=== PATIENT | female | born 1965 | race Caucasian/White ===

== ENCOUNTER → 2016-07-17 | Outpatient (CLI) | payer BC ==
[~2016-07-17] MED LIST: DLCSR120 PO; EZET10TA63 PO; GLC500 PO; INSDGI SC; INSUINJ14 SC; LISI-729 PO; SIMV20TA2 PO; SNG10 PO
[2016-07-17 14:22] LABS: ESTIMATED AVERAGE GLUCOSE 157 mg/dl; HA1C FLAG Normal (Normal)
== END | disposition home or self-care (01) ==
LOC: C.LABPVFM 07:31
PROVIDERS: ATTEND Nurse Practitioner Adult Health
DX: E11.9 Type 2 diabetes mellitus without complications (principal)

== ENCOUNTER → 2016-10-31 | Outpatient (CLI) | payer BC ==
[2016-10-31 13:18] LABS: ALT/SGPT 23 U/L (12-78); BLOOD UREA NITROGEN 17 mg/dl (7-18); BUN/CREATININE RATIO 23.8 (10-20); CALCIUM 9.3 mg/dl (8.5-10.1); CARBON DIOXIDE 25 mmol/L (21-32); CHLORIDE 107 mmol/L (98-107); CHOLESTEROL 136 mg/dl (0-200); CREATININE 0.71 mg/dl (0.60-1.20); GLUCOSE 104 mg/dl (70-99); POTASSIUM 4.1 mmol/L (3.5-5.1); SODIUM 140 mmol/L (136-145); TRIGLYCERIDES 166 mg/dl (0-150); VERY LOW DENSITY LIPOPROT CALC 33 mg/dl
[2016-10-31 13:29] LABS: ALB/GLOB RATIO 0.9 (0.9-2); ALKALINE PHOSPHATASE 84 U/L (45-117); AST/SGOT 17 U/L (15-37); CHOLESTEROL/HDL RATIO 3.2; HDL CHOLESTEROL 43 mg/dl; LDL CHOLESTEROL CALCULATED 60 mg/dl
[2016-10-31 13:31] LABS: RATIO 6.7 mcg/mg (0-30.0)
[2016-10-31 13:56] LABS: ESTIMATED AVERAGE GLUCOSE 160 mg/dl; HA1C FLAG Normal (Normal)
== END | disposition home or self-care (01) ==
LOC: C.LABPVFM 07:44
PROVIDERS: ATTEND Family Medicine
DX: E11.9 Type 2 diabetes mellitus without complications (principal); E78.00 Pure hypercholesterolemia, unspecified; I10 Essential (primary) hypertension

== ENCOUNTER → 2016-12-19 | Outpatient (CLI) | payer BC ==
[2016-12-19 12:45] LABS: CREATININE 0.69 mg/dl (0.60-1.20)
== END | disposition home or self-care (01) ==
LOC: C.LABPVFM 07:41
PROVIDERS: ATTEND Nurse Practitioner Adult Health
DX: E11.9 Type 2 diabetes mellitus without complications (principal); E78.00 Pure hypercholesterolemia, unspecified; R94.6 Abnormal results of thyroid function studies; I10 Essential (primary) hypertension

== ENCOUNTER → 2017-06-13 | Outpatient (CLI) | payer OTHER ==
[2017-06-13 13:14] LABS: HEMOGLOBIN A1C 7.4 % (4.5-5.6)
[2017-06-13 13:27] LABS: BLOOD UREA NITROGEN 13 mg/dl (7-18); CALCIUM 9.9 mg/dl (8.5-10.1); CARBON DIOXIDE 28 mmol/L (21-32); CREATININE 0.73 mg/dl (0.60-1.20); GLUCOSE 104 mg/dl (70-99); POTASSIUM 4.1 mmol/L (3.5-5.1); SODIUM 140 mmol/L (136-145)
== END | disposition home or self-care (01) ==
LOC: C.LABPVFM 07:50
PROVIDERS: ATTEND Nurse Practitioner Adult Health
DX: H69.80 Other specified disorders of Eustachian tube, unspecified ear (principal); I10 Essential (primary) hypertension; E11.9 Type 2 diabetes mellitus without complications

== ENCOUNTER 2024-04-09 10:58 | Inpatient (IN) ==
[2024-04-09 11:48] LABS: Appearance Urine Clear (Clear); Bacteria Urine Automated None Seen (None Seen); Bilirubin Urine Negative (Negative); Blood Urine 1+ (Negative); Color Urine Yellow; Epithelial Cell Urine Auto 0-2 /hpf (0-2); Glucose Urine UA Negative (Negative); Hyaline Casts Urine Present /lpf (None Presnt); Ketones Urine Trace (Negative); Leukocyte Esterase Urine 1+ (Negative); Nitrite Urine Negative (Negative); Protein Urine 2+ (Negative); RBC Urine Automated 0-2 /hpf (0-2); Specific Gravity Urine 1.011 (1.000-1.030); Urobilinogen Urine Negative (Negative)
[2024-04-09 12:02] LABS: Basophils # (auto) 0.09 K/uL (0.00-0.20); Basophils % (auto) 0.8 %; Eosinophils # (auto) 0.21 K/uL (0.00-0.50); Eosinophils % (auto) 1.9 %; Hematocrit (blood only) 30.5 % (37.0-47.0); Hemoglobin 9.9 g/dl (12.0-16.0); Immature Granulocytes # (auto) 0.04 K/uL (0.01-0.20); Immature Granulocytes % (auto) 0.4 %; Lymphocytes # (auto) 1.61 K/uL (1.20-3.40); Lymphocytes % (auto) 14.8 %; Mean Corpuscular Hemoglobin 28.6 pg (25.0-34.0); Mean Corpuscular Hgb Conc 32.5 g/dL (32.0-36.0); Mean Corpuscular Volume 88.2 fL (80.0-100.0); Mean Platelet Volume 11.8 fL (9.4-12.4); Monocytes # (auto) 0.79 K/uL (0.11-0.59); Monocytes % (auto) 7.2 %; Neutrophils # (auto) 8.17 K/uL (1.40-6.50); Neutrophils % (auto) 74.9 %; Platelet Count 266 K/uL (130-400); RDW Coefficient of Variation 14.6 % (11.5-14.5); RDW Standard Deviation 46.8 fL (36.4-46.3); Red Blood Count 3.46 M/uL (4.20-5.40); White Blood Count 10.91 K/ul (4.8-10.8)
[2024-04-09 12:24] LABS: Albumin Globulin Ratio 1.4 (0.9-2); Albumin Level 4.4 gm/dl (3.4-5.0); BUN Creatinine Ratio 12.8 (10-20); Bilirubin,Total 0.5 mg/dl (0.2-1.0); Calcium 9.4 mg/dl (8.6-10.3); Creatinine Clr Calc Pharmacy 10.2 ml/min; Globulin 3.1 gm/dl (2.5-4.0); Potassium 4.5 mmol/L (3.5-5.1); Total Protein 7.5 gm/dl (6.0-8.3)
[2024-04-09 12:41] LABS: Magnesium 2.1 mg/dl (1.7-2.4)
--- NOTE | 2024-04-09 12:51 | XRay Report ---
XR chest 1V portable CLINICAL HISTORY: illness COMPARISON STUDY: Chest CT April 24, 2008. FINDINGS: Lung volumes are normal. Lungs are clear. There is no pneumothorax or pleural effusion. Mil d cardiomegaly. Mediastinal contours are normal. There is no evidence for pulmonary edema. IMPRESSION: No acute cardiopulmonary findings. Cardiomegaly. ACT 112: Negative or not required by law. Electronically signed by: Raudel Alexandra M.D. 04/09/2024 12:50 PM
--- NOTE | 2024-04-09 13:04 | CT Scan Report ---
CT OF THE ABDOMEN AND PELVIS WITHOUT CONTRAST CLINICAL HISTORY: Acute kidney injury. COMPARISON STUDY: CT of the abdomen and pelvis May 25, 2008. TECHNIQUE: Axial images of the abdomen and pelvis were obtained without IV contrast. Images were revi ewed in the axial, sagittal, and coronal planes. Automated exposure control was utilized for the iván dy. A dose lowering technique was utilized adhering to the principles of ALARA. FINDINGS: Lung bases are unremarkable. No pneumatosis, free air or portal venous gas is present. Ther e are no renal, ureteral or bladder calculi. There is no hydronephrosis. Mild bilateral perinephric i nfiltration is greater on the left. Size of the kidneys is normal. Renal cortical thickness is normal . Fat attenuation 2.4 cm left adrenal nodule represents a myelolipoma. This is benign. Unenhanced yadira ges of the liver, spleen, adrenal glands and pancreas are unremarkable. There is no biliary or pancre atic ductal dilatation. There is no evidence for acute appendicitis. A radiodensity within the append ix is present. There is no lymphadenopathy. There are no fluid collections. IMPRESSION: 1. No urinary calculi or hydronephrosis. 2. Mild bilateral perinephric infiltration, greater than left. This represents a nonspecific finding which could be correlated with urinalysis. 3. No bowel obstruction. No evidence for acute appendicitis. ACT 112: Negative or not required by law. Electronically signed by: Raudel Alexandra M.D. 04/09/2024 1:02 PM
--- NOTE | 2024-04-09 13:33 | History & Physical Report ---
Date of Service April 09, 2024 Assessment & Plan (1) Acute renal failure: Plan: No known history of renal disease, does have a history of hypertension and type II DM no noted extreme hypotension or hypertension recently has had nausea/vomiting ~6 x in 2 weeks; suspected cause at this time is from hypovolemia - Cr 0.77 -> 7.25 -> 6.89 - BUN elevated to 88 indicating pre-renal cause - no electrolyte abnormalities - CXR negative, no signs of pulmonary edema - CT A/P negative for urinary hydro diffuse mild bilateral perinephritic infiltration, right greater than left, nonspecific - UA noninfectious, 2+ protein, trace ketones, 1+ blood, 1+ leukocyte esterase, 11-20 WBC, 6-10 hyaline cast - FENa = 0.8% = prerenal - lactate negative - trend renal function - repeat BMP 1700 - Hold metformin and Olmesartan - Consult nephrology - Recommended to start on sodium bicarb 150 MeQ at 100 ml/hr - ordered complement C3, complement C4, CK, protein electrophoresis, MICHAEL, iron panel, free kappa lambda light chain - repeat UA in AM - promote oral hydration (2) Metabolic acidosis: Plan: Suspect secondary to hypovolemia/vomiting Anion gap 18 VBG confirming metabolic acidosis - 7.34/37/20 lactate negative - expect to improve with treatment above - trend BMP (3) Tachycardia: Plan: likely 2/2 to above along with white coat syndrome and hypovolemia EKG showing NSR, no ischemic changes monitor on tele suspect improved with treatment above (4) Type 2 diabetes mellitus with obesity: Plan: Controlled on glargine 16U QAM, SSI (carb ratio 5 at home), metformin, s emaglutide at home - Most recent A1C 7.2 12/2023 - SSI with target BSG range 110-140mg/dL, CF 15, carb ratio 5 - Glargine insulin reduced to 12 units daily as diet control during hospital stay - hold metformin and semaglutide - T2DM diet - BSG ACHS if eating, q6h if npo - pharmacy glycemic consult given renal failure (5) Hypothyroidism: Plan: recent TSH WNL Continue levothyroxine (6) Hypertension: Plan: history of hypertension with white coat syndrome on diltiazem and and olmesartan continue dilt and hold olmesartan Plan Chronic stable diagnoses: intraductal papilloma left breast, 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 She has no known kidney disease. Presents today after abnormal blood work yesterday showing significantly elevated creatinine. she stated that she has had nausea and vomiting for the past 2 weeks, she will have 1 episode of vomiting and then go 2 to 3 days without. She has vomited approximately 6 times in the past few weeks. She just vomits food she eats, no hematemesis or bile. She thought this was secondary to Ozempic and discontinued it. Her PCP told her to discontinue her metformin yesterday 04/08. She did get her morning dose yesterday. She has chronically followed with her renal function, has always been stable. She stated she has had a decreased p.o. intake for the past few weeks just because of the nausea, sometimes she is dry heaves. She feels thirsty today. She drinks plenty of fluids, feels her yeti 3 times daily, no recent decline. She has had no other medication changes recently. She takes her blood pressure frequently at home, has been stable, no hyper or hypotension; has been trending between 120-130 systolic. She denies any urinary changes, denies decrease in urine output, dysuria, hematuria. Patient denies fever, chills, headache, dizziness, lightheadedness, vision changes, dyspnea, chest pain, abdominal pain, current nausea, edema, numbness, tingling. She does not use nicotine products and occasionally drinks alcohol. She still takes anastrozole for history of breast cancer. No previous VTE. She wishes to be full code at this time. She did not take her home medications this morning. Allergies Allergy/AdvReac Type Severity Reaction Status Date / Time liraglutide [From Victoza] Allergy Severe Tachycardia Verified 04/08/24 12:40 Sulfa (Sulfonamide Allergy Severe Hives Verified 04/08/24 12:40 Antibiotics) meperidine Allergy Mild Nausea Verified 04/08/24 12:40 Penicillins Allergy Mild Itchy Verified 04/08/24 12:40 adhesive tape Allergy Unknown Rash Verified 04/08/24 12:40 Home Medications Medication Instructions Recorded Confirmed Type blood-glucose meter,continuous #1 ea 02/16/19 04/08/24 History (Dexcom G6 Fitter Hand) [facility] 1 tab PO QAM 06/22/21 04/09/24 History Dexcom G6 Sensor (blood-glucose #9 ea 11/27/21 04/08/24 Rx sensor) Dexcom G6 Transmitter #1 ea 11/27/21 04/08/24 Rx (blood-glucose transmitter) cholecalciferol (vitamin D3) 50 1,000 unit PO QAM 05/17/22 04/09/24 History mcg (2,000 unit) capsule cyanocobalamin (vitamin B-12) 2,500 mcg PO QAM 05/17/22 04/09/24 History 1,000 mcg capsule blood sugar diagnostic (OneTouch #100 ea 07/04/22 04/08/24 Rx Verio test strips) blood-glucose meter (OneTouch #1 ea 07/04/22 04/08/24 Rx Verio Flex Meter) blood-glucose meter,continuous #1 ea 01/09/23 04/08/24 Rx (Dexcom G7 Fitter Hand) insulin aspart U-100 100 unit/mL 80 unit subcut UD 05/23/23 04/09/24 History (3 mL) subcutaneous pen (Novolog FlexPen U-100 Insulin aspart) anastrozole 1 mg tablet 1 mg PO DAILY 08/05/23 04/09/24 History levothyroxine 75 mcg tablet 75 mcg PO QAM #90 tabs 11/25/23 04/09/24 Rx olmesartan 40 mg tablet 40 mg PO QAM #90 tabs 11/25/23 04/09/24 Rx insulin glargine 100 unit/mL (3 15 unit subcut QAM diabetes 12/04/23 04/09/24 History mL) subcutaneous pen (Basaglar KwikPen U-100 Insulin) vitamin E mixed 400 unit capsule 400 unit PO DAILY 12/04/23 04/09/24 History blood-glucose sensor (Dexcom G7 #9 ea 12/19/23 04/08/24 Rx Sensor device) rosuvastatin 40 mg tablet 40 mg PO DAILY #90 tabs 01/02/24 04/09/24 Rx metformin 1,000 mg tablet 1,000 mg PO BID #180 tabs 02/24/24 04/09/24 Rx diltiazem HCl 120 mg capsule,24 120 mg PO BID #180 caps 04/06/24 04/09/24 Rx hr,extended release semaglutide 1 mg/dose (4 mg/3 mL) 1 mg (0.75 mL) subcut WK #9 mL 04/07/24 04/09/24 Rx subcutaneous pen injector pen needle, diabetic 31 gauge x 04/09/24 04/09/24 History 07/05" Past Med/Surg History Problem List (Updated 04/09/24 @ 14:57 by Quiana Ward MD) Proteinuria Metabolic acidosis Tachycardia Acute renal failure History of right breast cancer Intraductal papilloma of left breast Hyperlipemia Hypothyroidism Vitamin D deficiency 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) Type 2 diabetes mellitus with obesity White coat syndrome with diagnosis of hypertension Hypertension Dyslipidemia Controlled type 2 diabetes mellitus, with long-term current use of insulin Severe obesity (BMI >= 40) Medical History Conductive hearing loss of right ear with unrestricted hearing of left ear Kidney stones passed on own, no current issues Surgical History S/P bilateral breast lumpectomy (05/31/23) Bilateral Breast Lumpectomy with Localization Using [facility] [employer] , Right [place] Lymph Node Biopsy with Neoprobe(Not Applicable) - Deacon Nguyen DO History of myringotomy right ear History of tonsillectomy History of tooth extraction Family History Other No pertinent family history Social History Smoking Status: Never smoker Second Hand Exposure: No; Do You Dip or Chew Tobacco: No; Hx Alcohol Use: Yes Alcohol type: wine Alcohol Intake Frequency: Monthly or Less Hx Substance Use: No Preferred Language: Gambian Visual Impairment: No Limitations Hearing Ability: Normal Pst Supervisor Required: No Beliefs That Will Affect Care: None Current Living Situation: Spouse current occupational status: employed Feels Safe at Home: Yes Diet: diabetic during the past year weight has: decreased > 10 lbs Assistive Devices: Glasses Review of Systems Review of Systems: see HPI Physical Exam Physical Exam: The patient is awake, alert and oriented 3, well developed and well nourished, normocephalic and atraumatic, in no acute distress. Non-toxic appearing. HEENT- EOMI, mucous membranes moist. Hearing grossly intact. Heart-normal S1 and S2. No murmurs, rubs or gallops. Lungs-clear bilaterally, no respiratory distress, no accessory muscle use. Abdomen-normal bowel sounds and soft. No ascites noted. Non-tender. Extremities- no clubbing, cyanosis, or edema. Rheumatologic-normal range of motion. Psychiatric-normal affect. Results & Data Results & Data Vital Signs (Past 12 Hours) Vital Signs Temp Pulse Resp BP Pulse Ox O2 Del Method 04/09/24 11:03 36.6 C 111 H 20 153/85 H 99 Room Air Laboratory Results Reviewed CBC, CMP, UA Diagnostic Findings Reviewed CXR and A/P CT Medications Administered sodium bicarbonate 150 mEq at 100 mL/h ECG Additional Comments: NSR Code Status & VTE Plan Code Status full code VTE Prophylaxis Plan VTE Prophylaxis will be ordered: Yes Supervising Physician Co-Signing Physician Notes Patient seen and examined, chart reviewed, case discussed with Padmini Mccord PA-C and I agree with the assessment and plan as above except as otherwise noted Labs and images reviewed N/V x2 weeks after starting ozempic. Other than nause avomiting denies infectious symptoms. No fever, no chills. Mild leukocytosis without left shift likely demargination. CT-A/B without obstruction. ?perinephric infilration on CT, UA does not show evidence of infection. Abx deferred. No evidence o fobstructive nephropathy. +Prerenal contraction. Patient reports that she is still voiding normally and has not had any dysuria, change in urinary color quantity or frequency and overall other than the nausea and vomiting which seems to be starting to improve today has not felt ill. Other than Ozempic denies medication changes. Metformin held. +basal/bolus while inpatient. Nephrology consulted. Agree w/ bicarb gtt. Continue hydration, push orals. Labs trended. Agree w/ above. Abd soft/NT. PG Care Time/CCT Total # of Minutes Spent Total Time Spent with Patient: Total time spent is greater than 50% in coordination of care (as documented) at patient's floor/unit and/or counseling patient: Coding Level of Care Code 48429 INT INP/OBS CARE 3/75MIN Diagnoses Acute renal failure N17.9 Metabolic acidosis E87.20 Tachycardia R00.0 Type 2 diabetes mellitus with obesity E11.69; E66.9 Hypothyroidism E03.9 Hypertension I10
[2024-04-09] MEDS: SODIUM BICARBONATE 8.4% 150 MEQ in DEXTROSE 5% 1,000 ML IV SCH (13:41)
[2024-04-09] MEDS: STAT IV/IM STA (13:43)
[2024-04-09 14:57] LABS: Base Excess VBG -5.2 mEq/L; HCO3 VBG 20 mmol/L; Oxygen Saturation VBG < 60.0 %; PCO2 VBG 37 mmHg (38-50); PO2 VBG 25 mmHg; pH VBG 7.34 (7.36-7.41)
[2024-04-09 15:00] LABS: Phosphorus 5.7 mg/dl (2.5-4.9)
--- NOTE | 2024-04-09 15:03 | Nephrology Consultation ---
Date of Consultation April 09, 2024 Assessment & Plan (1) Acute renal failure: (2) Metabolic acidosis: (3) Hypertension: (4) Type 2 diabetes mellitus with obesity: (5) Hyperlipemia: (6) Proteinuria: Plan 58-year-old female with baseline normal kidney function, well-controlled hypertension and diabetes, admitted to the hospital with 2 weeks history of episodic nausea and vomiting and outpatient labs showing GENNARO. On admission creatinine was 6.8 with prior baseline creatinine 0.8-0.9. Noted to have metabolic acidosis with potassium normal. Urinalysis with 2+ proteinuria but no hematuria, pyuria or bacteriuria and positive for hyaline cast. CT abdomen pelvis without contrast was otherwise unremarkable. GENNARO could be prerenal with volume depletion with 2 weeks history of nausea vomiting, poor p.o. intake, metformin, ARB on board. Was on Ozempic the dose was recently increased over 2 months ago which may have contributed to the nausea vomiting. Proteinuria could be due to underlying diabetes, tubular proteinuria, glomerular disease or others. -- Change IV fluid to bicarb drip at 100 mL/h, continue to monitor volume status, measure accurate intake and output. Encouraged to increase p.o. intake. -- Considering progressive anemia over last few months, proteinuria and GENNARO, will order serologic and paraproteinemia workup. Will repeat urinalysis in a.m., check protein creatinine ratio, check CPK. -- Dose medications for eGFR less than 10, agree with holding metformin, olmesartan and Ozempic. -- If blood pressure runs high, diltiazem and can be resumed. Thank you for allowing me to participate in your patient's care. It was a pleasure to see Misty. History of Present Illness Reason for Consultation: GENNARO, metabolic acidosis History of Present Illness Ms. Misty Mena is a 58-year-old female with past medical history significant for hypertension, diabetes presented to hospital with outpatient labs showing acute kidney injury in the setting of nausea and vomiting for 2 weeks. Nephrology consult was requested for further management of GENNARO and metabolic acidosis. EMR records were reviewed in detail during patient's visit. Misty presented to ER yesterday this morning after outpatient lab yesterday showing acute kidney injury, creatinine was 7.2 mg/dl, with prior baseline creatinine 0.8-0.9 mg/dl. She reports having episodic nausea and vomiting over last 2 weeks which will generally last for 2 to 3 days and then improved and again she would have nausea and vomiting. No diarrhea or abdominal pain. She was able to keep up with fluid intake but appetite has not been great. Has been voiding normally. She has been on Ozempic for last more than a year and she reports about 50 pounds weight loss. She did notice some issues with nausea every time Ozempic doses was increased. In January dose was increased to 1 mg and since then she did notice occasional nausea. She was on metformin, olmesartan, currently on hold. Ozempic was stopped about 2 weeks ago when she first started having the symptoms. No fever, chills, skin rash, arthralgia, lower extremity edema. No history of NSAID use. No recent antibiotic exposure. On admission labs showed creatinine 6.8 mg/dl, potassium normal, bicarb was 16. Hemoglobin was 9.0 which has been slowly dropping over last few months. No hypercalcemia or hypoalbuminemia. Urinalysis showed 2+ proteinuria, no hematuria, pyuria or bacteriuria, 6-10 hyaline cast/HPF. CT abdomen pelvis showed no postrenal obstruction, kidneys are otherwise unremarkable. She does have prior history of nephrolithiasis before but none recently and imaging was unremarkable. Since admission blood pressure has been otherwise normal, no hypotensive episode. She was initially started on IV normal saline. History of well-controlled hypertension for few years. Diagnosis of type 2 diabetes for about 20 years. No macro or microvascular complication, no history of retinopathy, coronary artery disease, peripheral vascular disease or CHF. No history of recurrent throat infection. Never smoker, drinks only rarely. Works at [employer]. No known family history of CKD or ESKD. History of ductal carcinoma in situ of right breast in 2022 status post lumpectomy and radiation therapy, currently on anastrozole. She reports feeling slightly better but quite concerned. Allergies Allergy/AdvReac Type Severity Reaction Status Date / Time liraglutide [From Victoza] Allergy Severe Tachycardia Verified 04/08/24 12:40 Sulfa (Sulfonamide Allergy Severe Hives Verified 04/08/24 12:40 Antibiotics) meperidine Allergy Mild Nausea Verified 04/08/24 12:40 Penicillins Allergy Mild Itchy Verified 04/08/24 12:40 adhesive tape Allergy Unknown Rash Verified 04/08/24 12:40 Home Medications Medication Instructions Recorded Confirmed Type blood-glucose meter,continuous #1 ea 02/16/19 04/08/24 History (Dexcom G6 Learning And Development Administrator) [facility] 1 tab PO QAM 06/22/21 04/09/24 History Dexcom G6 Sensor (blood-glucose #9 ea 11/27/21 04/08/24 Rx sensor) Dexcom G6 Transmitter #1 ea 11/27/21 04/08/24 Rx (blood-glucose transmitter) cholecalciferol (vitamin D3) 50 1,000 unit PO QAM 05/17/22 04/09/24 History mcg (2,000 unit) capsule cyanocobalamin (vitamin B-12) 2,500 mcg PO QAM 05/17/22 04/09/24 History 1,000 mcg capsule blood sugar diagnostic (OneTouch #100 ea 07/04/22 04/08/24 Rx Verio test strips) blood-glucose meter (OneTouch #1 ea 07/04/22 04/08/24 Rx Verio Flex Meter) blood-glucose meter,continuous #1 ea 01/09/23 04/08/24 Rx (Dexcom G7 Learning And Development Administrator) insulin aspart U-100 100 unit/mL 80 unit subcut UD 05/23/23 04/09/24 History (3 mL) subcutaneous pen (Novolog FlexPen U-100 Insulin aspart) anastrozole 1 mg tablet 1 mg PO DAILY 08/05/23 04/09/24 History levothyroxine 75 mcg tablet 75 mcg PO QAM #90 tabs 11/25/23 04/09/24 Rx olmesartan 40 mg tablet 40 mg PO QAM #90 tabs 11/25/23 04/09/24 Rx insulin glargine 100 unit/mL (3 15 unit subcut QAM diabetes 12/04/23 04/09/24 History mL) subcutaneous pen (Basaglar KwikPen U-100 Insulin) vitamin E mixed 400 unit capsule 400 unit PO DAILY 12/04/23 04/09/24 History blood-glucose sensor (Dexcom G7 #9 ea 12/19/23 04/08/24 Rx Sensor device) rosuvastatin 40 mg tablet 40 mg PO DAILY #90 tabs 01/02/24 04/09/24 Rx metformin 1,000 mg tablet 1,000 mg PO BID #180 tabs 02/24/24 04/09/24 Rx diltiazem HCl 120 mg capsule,24 120 mg PO BID #180 caps 04/06/24 04/09/24 Rx hr,extended release semaglutide 1 mg/dose (4 mg/3 mL) 1 mg (0.75 mL) subcut WK #9 mL 04/07/24 04/09/24 Rx subcutaneous pen injector pen needle, diabetic 31 gauge x 04/09/24 04/09/24 History 07/05" Patient History Medical History Conductive hearing loss of right ear with unrestricted hearing of left ear Kidney stones passed on own, no current issues Surgical History S/P bilateral breast lumpectomy (05/31/23) Bilateral Breast Lumpectomy with Localization Using [employer] , Right [place] Lymph Node Biopsy with Neoprobe(Not Applicable) - Deacon Nguyen DO History of myringotomy right ear History of tonsillectomy History of tooth extraction Family History Other No pertinent family history Social History Smoking Status: Never smoker Second Hand Exposure: No; Do You Dip or Chew Tobacco: No; Hx Alcohol Use: Yes Alcohol type: wine Alcohol Intake Frequency: Monthly or Less Hx Substance Use: No Preferred Language: Prydein[place] Visual Impairment: No Limitations Hearing Ability: Normal Supervisor Doping Required: No Beliefs That Will Affect Care: None Current Living Situation: Spouse current occupational status: employed Feels Safe at Home: Yes Diet: diabetic during the past year weight has: decreased > 10 lbs Assistive Devices: Glasses Review of Systems Review of Systems: Detailed review of system was done and pertinent positives and negatives are mentioned above. Physical Exam Constitutional: WD/WN, vitals as above no acute distress Eyes: + anicteric sclerae Neck: normal visual inspection Respiratory: Auscultation: lungs clear to auscultation bilaterally Cardiovascular: RRR, no murmur, no edema Gastrointestinal (Abdomen): Inspection/Auscultation: abdomen normal to inspection Musculoskeletal: Extremities: extremities normal to inspection No back or CVA tenderness. Skin: no rashes, warm and dry Neurologic: no focal motor deficits Psychiatric: Orientation: alert and oriented x 3 Affect: euthymic affect Results & Data Vital Signs (Past 12 Hours) Vital Signs Temp Pulse Resp BP Pulse Ox O2 Del Method 04/09/24 11:03 36.6 C 111 H 20 153/85 H 99 Room Air PG Care Time/CCT Total # of Minutes Spent Total Time Spent with Patient: Total time spent is greater than 50% in coordination of care (as documented) at patient's floor/unit and/or counseling patient: Coding Level of Care Code 03940 INT INP/OBS CARE 3/75MIN Diagnoses Acute renal failure N17.9 Metabolic acidosis E87.20 Hypertension I10 Type 2 diabetes mellitus with obesity E11.69; E66.9 Hyperlipemia E78.5 Proteinuria R80.9
[2024-04-09 15:09] LABS: Hematocrit (blood only) 29.7 % (37.0-47.0); Hemoglobin 9.6 g/dl (12.0-16.0); Mean Corpuscular Hemoglobin 28.4 pg (25.0-34.0); Mean Corpuscular Hgb Conc 32.3 g/dL (32.0-36.0); Mean Corpuscular Volume 87.9 fL (80.0-100.0); Mean Platelet Volume 11.2 fL (9.4-12.4); Platelet Count 242 K/uL (130-400); RDW Coefficient of Variation 14.6 % (11.5-14.5); RDW Standard Deviation 46.8 fL (36.4-46.3); Red Blood Count 3.38 M/uL (4.20-5.40)
[2024-04-09 17:18] LABS: Calcium 9.4 mg/dl (8.6-10.3); Creatinine Clr Calc Pharmacy 10.3 ml/min; Potassium 4.8 mmol/L (3.5-5.1)
[2024-04-09] MEDS ORDERED: DOCUSATE SODIUM 100 MG CAP PO PRN (17:23)
[2024-04-09] MEDS ORDERED: GLUCOSE 10 TAB/TUBE PO PRN (17:23)
[2024-04-09] MEDS ORDERED: ONDANSETRON INJ 2 MG/ML 2 ML VIAL IV PRN (17:23)
[2024-04-09] MEDS ORDERED: ACETAMINOPHEN 325 MG TAB PO PRN (17:23)
[2024-04-09] MEDS ORDERED: GLUCOSE 40% GEL 15 GM TUBE PO PRN (17:23)
[2024-04-09] MEDS ORDERED: DEXTROSE 50% 50 ML SYRINGE IV PRN (17:23)
[2024-04-09] MEDS ORDERED: CARBOHYDRATES FOR HYPOGLYCEMIA PO PRN (17:23)
[2024-04-09] MEDS ORDERED: GLUCAGON FOR INJ 1 MG VIAL SQ PRN (17:23)
[2024-04-09] MEDS ORDERED: PHARMACY GLYCEMIC MGMT CONSULT PRN (17:23)
[2024-04-09] MEDS: INSULIN ASPART PER UNIT CHARGE SC SCH ×2 (18:28→23:22)
[2024-04-09] MEDS: ROSUVASTATIN CALCIUM 20 MG TAB PO SCH (19:38)
[2024-04-09] MEDS: dilTIAZem HCL 120 MG CAPCR PO SCH (19:40)
[2024-04-09] MEDS: [UNRECOGNIZED DRUG - OTHER] IV SCH (19:41)
[2024-04-09] MEDS: 1/2 NS IV SCH (19:41)
--- NOTE | 2024-04-09 20:16 | Emergency Department Note ---
History of Present Illness General Chief Complaint: Abnormal Labs/Diagnostic Testing Stated Complaint: CREATININE WAS 7 AND HIGH WBC Time Seen by Provider: 04/09/24 11:59 History of Present Illness Provider Complaint: + abnormal lab Returns today for: + called because of abnormal lab/test Description of abnormal result: Elevated creatinine Associated symptoms: + abdominal pain (Left-sided flank pain); no fever, no chills, no chest pain or no shortness of breath Home Medications Medication Instructions Recorded Confirmed Type blood-glucose meter,continuous #1 ea 02/16/19 04/08/24 History (Dexcom G6 Car Oiler) [facility] 1 tab PO QAM 06/22/21 04/09/24 History Dexcom G6 Sensor (blood-glucose #9 ea 11/27/21 04/08/24 Rx sensor) Dexcom G6 Transmitter #1 ea 11/27/21 04/08/24 Rx (blood-glucose transmitter) cholecalciferol (vitamin D3) 50 1,000 unit PO QAM 05/17/22 04/09/24 History mcg (2,000 unit) capsule cyanocobalamin (vitamin B-12) 2,500 mcg PO QAM 05/17/22 04/09/24 History 1,000 mcg capsule blood sugar diagnostic (OneTouch #100 ea 07/04/22 04/08/24 Rx Verio test strips) blood-glucose meter (OneTouch #1 ea 07/04/22 04/08/24 Rx Verio Flex Meter) blood-glucose meter,continuous #1 ea 01/09/23 04/08/24 Rx (Dexcom G7 Car Oiler) insulin aspart U-100 100 unit/mL 80 unit subcut UD 05/23/23 04/09/24 History (3 mL) subcutaneous pen (Novolog FlexPen U-100 Insulin aspart) anastrozole 1 mg tablet 1 mg PO DAILY 08/05/23 04/09/24 History levothyroxine 75 mcg tablet 75 mcg PO QAM #90 tabs 11/25/23 04/09/24 Rx olmesartan 40 mg tablet 40 mg PO QAM #90 tabs 11/25/23 04/09/24 Rx insulin glargine 100 unit/mL (3 15 unit subcut QAM diabetes 12/04/23 04/09/24 History mL) subcutaneous pen (Basaglar KwikPen U-100 Insulin) vitamin E mixed 400 unit capsule 400 unit PO DAILY 12/04/23 04/09/24 History blood-glucose sensor (Dexcom G7 #9 ea 12/19/23 04/08/24 Rx Sensor device) rosuvastatin 40 mg tablet 40 mg PO DAILY #90 tabs 01/02/24 04/09/24 Rx metformin 1,000 mg tablet 1,000 mg PO BID #180 tabs 02/24/24 04/09/24 Rx diltiazem HCl 120 mg capsule,24 120 mg PO BID #180 caps 04/06/24 04/09/24 Rx hr,extended release semaglutide 1 mg/dose (4 mg/3 mL) 1 mg (0.75 mL) subcut WK #9 mL 04/07/24 04/09/24 Rx subcutaneous pen injector pen needle, diabetic 31 gauge x 04/09/24 04/09/24 History 07/05" Allergies Allergy/AdvReac Type Severity Reaction Status Date / Time liraglutide [From Victoza] Allergy Severe Tachycardia Verified 04/08/24 12:40 Sulfa (Sulfonamide Allergy Severe Hives Verified 04/08/24 12:40 Antibiotics) meperidine Allergy Mild Nausea Verified 04/08/24 12:40 Penicillins Allergy Mild Itchy Verified 04/08/24 12:40 adhesive tape Allergy Unknown Rash Verified 04/08/24 12:40 Past Med/Surg History Problem List (Updated 04/09/24 @ 20:16 by Bayron Wolff MD) Proteinuria Metabolic acidosis Tachycardia Acute renal failure (Acute) History of right breast cancer Intraductal papilloma of left breast Hyperlipemia Hypothyroidism Vitamin D deficiency 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) Type 2 diabetes mellitus with obesity White coat syndrome with diagnosis of hypertension Hypertension Dyslipidemia Controlled type 2 diabetes mellitus, with long-term current use of insulin Severe obesity (BMI >= 40) Medical History Conductive hearing loss of right ear with unrestricted hearing of left ear Kidney stones passed on own, no current issues Surgical History S/P bilateral breast lumpectomy (05/31/23) Bilateral Breast Lumpectomy with Localization Using Wendy Building Coordinator , Right [place] Lymph Node Biopsy with Neoprobe(Not Applicable) - Deacon Nguyen DO History of myringotomy right ear History of tonsillectomy History of tooth extraction Family History Other No pertinent family history Social History Smoking Status: Never smoker Second Hand Exposure: No; Do You Dip or Chew Tobacco: No; Hx Alcohol Use: Yes Alcohol type: wine Alcohol Intake Frequency: Monthly or Less Hx Substance Use: No Preferred Language: Icelandic Visual Impairment: No Limitations Hearing Ability: Normal [employer] Mk1 Operator Required: No Beliefs That Will Affect Care: None Current Living Situation: Spouse Current Living Situation Comment: Lives at home with current occupational status: employed Other Information That Helps Us Care for You: No Feels Safe at Home: Yes Safety Concerns: Feels Safe At This Time Diet: diabetic during the past year weight has: decreased > 10 lbs Assistive Devices: Glasses and Hospital Bed Physical Exam 2 Vital Signs: Vital Signs - 24 hr 04/09/24 11:03 04/09/24 11:30 04/09/24 13:03 Temperature 36.6 C Temperature Source Temporal Artery Sc an Pulse Rate 111 H Pulse Rate from Sp O2 Sensor 102 H 103 H Respiratory Rate 20 Respiratory Effort / Characteristics Non-Labored Sponta neous Respiratory Depth Normal Blood Pressure 153/85 H 154/89 H 182/96 H Blood Pressure Swati n 107 110 124 Pulse Oximetry 99 98 98 Oxygen Delivery Me thod Room Air Sepsis Recent Feve r Within 48 Hours No Sepsis New/Unexpla ined Change in Men francois Status No Sepsis Action Take n by Nursing No Action Required 04/09/24 13:33 Temperature Temperature Source Pulse Rate Pulse Rate from Sp O2 Sensor 102 H Respiratory Rate Respiratory Effort / Characteristics Respiratory Depth Blood Pressure 191/100 H Blood Pressure Swati n 130 Pulse Oximetry 99 Oxygen Delivery Me thod Sepsis Recent Feve r Within 48 Hours Sepsis New/Unexpla ined Change in Men francois Status Sepsis Action Take n by Nursing Physical Exam: Physical Exam GENERAL: oriented to person, place, and time. appears well-developed and well- nourished. She does not appear distressed. HENT: Exam performed. -Head: Normocephalic and atraumatic. -Right Ear: External ear normal. No mastoid erythema -Left Ear: External ear normal. No mastoid erythema -Mouth/Throat: The oropharynx is clear and moist. No trismus in the jaw. No dental abscesses or uvula swelling. No oropharyngeal exudate or tonsillar abscesses. EYES: Conjunctivae and EOM are normal.Right eye exhibits no discharge. Left eye exhibits no discharge. No scleral icterus. NECK: Normal range of motion. Neck supple. No JVD present. No tracheal deviation and normal range of motion present. CV: Normal rate, regular rhythm, normal heart sounds and intact distal pulses. There is no peripheral edema. Palpable radial pulses bue. PULM/CHEST: Effort normal and breath sounds normal. No respiratory distress. No stridor. no wheezes.no rales. -Chest Wall: no tenderness to palpation ABD: The abdomen is soft. no distension. No mass is present. There is no tenderness. There is no rebound, no guarding. Left-sided CVA tenderness bilaterally. MUSC/SKEL: Normal range of motion. There is no peripheral edema, tenderness or deformity. NEURO: Motor and sensation grossly intact. SKIN: Skin is warm and dry. not diaphoretic. PSYCH: normal mood and affect. Behavior is normal. Judgment and thought content normal. Course Course 1159: The patient was evaluated in room B12. A complete history and physical exam was performed Cardiac monitoring: An order was placed for continuous cardiac monitoring. The monitor shows a rate of 100 with sinus rhythm interpreted by wa 1325: Vital signs stable. Labs show a white blood cell count 10.29.6. Creatinine 6.89 BUN 88. Urinalysis does not show any signs of infection. CT imaging shows no urinary calculi or hydronephrosis. There is mild bilateral perinephric infiltration greater than left. Discussed case with on-call [facility] nephrology Dr. Cruz. She states to start the patient on a bicarb drip with D5W and she will evaluate the patient. Patient be admitted to the [facility] hospitalist team. Administered Medications Diltiazem HCl (Diltiazem Hcl 120 Mg Capcr) 120 mg PO BID JONNIE Stop: 05/09/24 20:59 Last Admin: 04/09/24 19:40 Dose: 120 mg Documented By: KJP Sodium Bicarbonate 75 meq/ (Sodium Chloride) 1,075 mls @ 100 mls/hr IV .[id number] JONNIE Stop: 05/09/24 18:44 Last Admin: 04/09/24 19:41 Dose: 100 mls/hr Documented By: YEN Insulin Aspart (Insulin Aspart Per Unit Charge) 0 units SC ACHS JONNIE Stop: 05/09/24 17:22 Last Admin: 04/09/24 18:28 Dose: 18 units Documented By: QUETAM Co-signed By: CHEMO Rosuvastatin Calcium (Rosuvastatin Calcium 20 Mg Tab) 40 mg PO DAILY JONNIE Stop: 05/09/24 17:59 Last Admin: 04/09/24 19:38 Dose: 40 mg Documented By: YEN Discontinued Medications Sodium Bicarbonate 150 meq/ (Dextrose) 1,150 mls @ 100 mls/hr IV .[id number] JONNIE Stop: 04/09/24 18:45 Last Infusion: 04/09/24 19:41 Dose: Infused Documented By: Admin: 04/09/24 13:41 Dose: 100 mls/hr Documented By: HB Miscellaneous (Stat Iv/Im) 1 each N/A NOW STA Stop: 04/09/24 13:17 Last Admin: 04/09/24 13:43 Dose: Not Given Documented By: HB Medical Decision Making Laboratory Data Attestation: I reviewed the patient's lab results. 04/09/24 14:50 04/09/24 14:52 Lab Results 04/09/24 04/09/24 Range/Units 11:15 11:27 WBC 10.91 H (4.8-10.8) K/ul RBC 3.46 L (4.20-5.40) M/uL Hgb 9.9 L (12.0-16.0) g/dl Hct 30.5 L (37.0-47.0) % MCV 88.2 (80.0-100.0) fL MCH 28.6 (25.0-34.0) pg MCHC 32.5 (32.0-36.0) g/dL RDW Std Deviation 46.8 H (36.4-46.3) fL RDW Coeff of Car 14.6 H (11.5-14.5) % Plt Count 266 (130-400) K/uL MPV 11.8 (9.4-12.4) fL Immature Gran % (Auto) 0.4 % Neut % (Auto) 74.9 % Lymph % (Auto) 14.8 % [place] % (Auto) 7.2 % Eos % (Auto) 1.9 % Baso % (Auto) 0.8 % Neut # (Auto) 8.17 H (1.40-6.50) K/uL Lymph # (Auto) 1.61 (1.20-3.40) K/uL [place] # (Auto) 0.79 H (0.11-0.59) K/uL Eos # (Auto) 0.21 (0.00-0.50) K/uL Baso # (Auto) 0.09 (0.00-0.20) K/uL Immature Gran # (Auto) 0.04 (0.01-0.20) K/uL Sodium 137 (136-145) mmol/L Potassium 4.5 (3.5-5.1) mmol/L Chloride 102 (98-107) mmol/L Carbon Dioxide 17 L (21-32) mmol/L Anion Gap 18 H (3-11) BUN 88 H (6-23) mg/dl Creatinine 6.89 H* (0.6-1.2) mg/dl Est Cr Clr Drug Dosing 10.2 ml/min eGFR 6.36 BUN/Creatinine Ratio 12.8 (10-20) Glucose 148 H (70-99(Fasting)) mg/dl Calcium 9.4 (8.6-10.3) mg/dl Phosphorus 5.7 H (2.5-4.9) mg/dl Magnesium 2.1 (1.7-2.4) mg/dl Total Bilirubin 0.5 (0.2-1.0) mg/dl AST 15 (13-39) U/L ALT 14 (7-52) U/L Alkaline Phosphatase 85 (34-104) U/L Total Creatine Kinase 61 (26-192) U/L Total Protein 7.5 (6.0-8.3) gm/dl Albumin 4.4 (3.4-5.0) gm/dl Globulin 3.1 (2.5-4.0) gm/dl Albumin/Globulin Ratio 1.4 (0.9-2) Urine Color Yellow Urine Appearance Clear (Clear) Urine pH 5.0 (4.5-7.5) Ur Specific [place] 1.011 (1.000-1.030) Urine Protein 2+ H (Negative) Urine Glucose (UA) Negative (Negative) Urine Ketones Trace H (Negative) Urine Blood 1+ H (Negative) Urine Nitrite Negative (Negative) Urine Bilirubin Negative (Negative) Urine Urobilinogen Negative (Negative) Ur Leukocyte Esterase 1+ H (Negative) Urine WBC (Auto) 11-20 H (0-5) /hpf Urine RBC (Auto) 0-2 (0-2) /hpf U Hyaline Cast (Auto) 6-10 H (0-2) /lpf U Epithel Cells (Auto) 0-2 (0-2) /hpf Urine Bacteria (Auto) None Seen (None Seen) Hyaline Casts Present A (None Presnt) /lpf Urine Osmolality 330 L (500-800) mOsm/kg Ur Random Sodium 50 mmol/L Imaging Data Radiologist's Impression: Chest X-Ray 04/09/24 11:08 XR chest 1V portable CLINICAL HISTORY: illness COMPARISON STUDY: Chest CT April 24, 2008. FINDINGS: Lung volumes are normal. Lungs are clear. There is no pneumothorax or pleural effusion. Mild cardiomegaly. Mediastinal contours are normal. There is no evidence for pulmonary edema. IMPRESSION: No acute cardiopulmonary findings. Cardiomegaly. ACT 112: Negative or not required by law. Electronically signed by: Raudel Alexandra M.D. 04/09/2024 12:50 PM Abdomen/Pelvis CT 04/09/24 12:01 CT OF THE ABDOMEN AND PELVIS WITHOUT CONTRAST CLINICAL HISTORY: Acute kidney injury. COMPARISON STUDY: CT of the abdomen and pelvis May 25, 2008. TECHNIQUE: Axial images of the abdomen and pelvis were obtained without IV contrast. Images were reviewed in the axial, sagittal, and coronal planes. Automated exposure control was utilized for the study. A dose lowering technique was utilized adhering to the principles of ALARA. FINDINGS: Lung bases are unremarkable. No pneumatosis, free air or portal venous gas is present. There are no renal, ureteral or bladder calculi. There is no hydronephrosis. Mild bilateral perinephric infiltration is greater on the left. Size of the kidneys is normal. Renal cortical thickness is normal. Fat attenuation 2.4 cm left adrenal nodule represents a myelolipoma. This is benign. Unenhanced images of the liver, spleen, adrenal glands and pancreas are unremarkable. There is no biliary or pancreatic ductal dilatation. There is no evidence for acute appendicitis. A radiodensity within the appendix is present. There is no lymphadenopathy. There are no fluid collections. IMPRESSION: 1. No urinary calculi or hydronephrosis. 2. Mild bilateral perinephric infiltration, greater than left. This represents a nonspecific finding which could be correlated with urinalysis. 3. No bowel obstruction. No evidence for acute appendicitis. ACT 112: Negative or not required by law. Electronically signed by: Raudel Alexandra M.D. 04/09/2024 1:02 PM ECG Data Attestation: I personally reviewed and interpreted this ECG as follows: Rate (beats per minute): 100 Rhythm: normal sinus Findings: no ST depression, no ST elevation or no prolonged QT MDM Narrative 1159: The patient was evaluated in room B12. A complete history and physical exam was performed Cardiac monitoring: An order was placed for continuous cardiac monitoring. The monitor shows a rate of 100 with sinus rhythm interpreted by me 1325: Vital signs stable. Labs show a white blood cell count 10.29.6. Creatinine 6.89 BUN 88. Urinalysis does not show any signs of infection. CT imaging shows no urinary calculi or hydronephrosis. There is mild bilateral perinephric infiltration greater than left. Discussed case with on-call [facility] nephrology Dr. Cruz. She states to start the patient on a bicarb drip with D5W and she will evaluate the patient. Patient be admitted to the [facility] hospitalist team. Impression & Plan Acute renal failure Discharge Plan Visit Data Chief Complaint: Abnormal Labs/Diagnostic Testing Stated Complaint: CREATININE WAS 7 AND HIGH WBC ED Provider: Bayron Wolff Discharge Problem: Acute renal failure Patient Disposition: Admitted As Inpatient Discharge Instructions Interventions: ED Discharge Assessment Last Done: 04/09/24 17:01
--- NOTE | 2024-04-09 21:49 | Electrocardiogram Report ---
Test Reason : Blood Pressure : */* mmHG Vent. Rate : 100 BPM Atrial Rate : 100 BPM P-R Int : 142 ms QRS Dur : 94 ms QT Int : 330 ms P-R-T Axes : 38 -31 37 degrees QTcB Int : 425 ms Normal sinus rhythm Left axis deviation Possible Anterolateral infarct (cited on or before 31-Dec-2001) Abnormal ECG When compared with ECG of 08-May-2023 08:15, Borderline criteria for Inferior infarct are no longer Present Confirmed by Ibrahima Acosta ([id number]) on 04/09/2024 9:49:20 PM Referred By: Confirmed By: Ibrahima Acosta
[2024-04-10 03:30] LABS: Appearance Urine Clear (Clear); Bacteria Urine Automated None Seen (None Seen); Bilirubin Urine Negative (Negative); Blood Urine 1+ (Negative); Cast Urine Automated 0-2 /lpf (0-2); Color Urine Yellow; Epithelial Cell Urine Auto 0-2 /hpf (0-2); Glucose Urine UA Negative (Negative); Ketones Urine Negative (Negative); Leukocyte Esterase Urine 1+ (Negative); Nitrite Urine Negative (Negative); Protein Urine 1+ (Negative); RBC Urine Automated 0-2 /hpf (0-2); Specific Gravity Urine 1.008 (1.000-1.030); Urobilinogen Urine Negative (Negative); pH Urine 5.5 (4.5-7.5)
[2024-04-10 03:42] LABS: Creatinine Urine Random 56.4 mg/dl; Protein Creatinine Ratio Urine 1.1 (0-0.2); Total Protein Urine Random 60.9 mg/dl (0-11.9)
[2024-04-10 04:41] LABS: Hematocrit (blood only) 25.6 % (37.0-47.0); Hemoglobin 8.4 g/dl (12.0-16.0); Mean Corpuscular Hemoglobin 28.6 pg (25.0-34.0); Mean Corpuscular Hgb Conc 32.8 g/dL (32.0-36.0); Mean Corpuscular Volume 87.1 fL (80.0-100.0); Mean Platelet Volume 11.6 fL (9.4-12.4); Platelet Count 210 K/uL (130-400); RDW Coefficient of Variation 14.3 % (11.5-14.5); RDW Standard Deviation 45.1 fL (36.4-46.3); Red Blood Count 2.94 M/uL (4.20-5.40); White Blood Count 9.48 K/ul (4.8-10.8)
[2024-04-10 05:22] LABS: Albumin Level 3.3 gm/dl (3.4-5.0); BUN Creatinine Ratio 12.4 (10-20); Calcium 8.5 mg/dl (8.6-10.3); Phosphorus 4.6 mg/dl (2.5-4.9); Potassium 3.8 mmol/L (3.5-5.1)
[2024-04-10] MEDS: LEVOTHYROXINE SODIUM 75 MCG TABLET PO SCH (05:30)
[2024-04-10 05:36] LABS: Ferritin 243.2 ng/ml (8-388)
[2024-04-10] MEDS: ANASTROZOLE 1 MG TAB PO SCH (09:00)
[2024-04-10] MEDS: CYANOCOBALAMIN (B-12) 2,500 MCG TABLET PO SCH (09:00)
[2024-04-10] MEDS: TOCOPHERYL, DL-ALPHA 400 UNITS 180 MG CAP PO SCH (09:00)
[2024-04-10] MEDS: LANTUS PER UNIT CHARGE SQ SCH (09:11)
--- NOTE | 2024-04-10 10:18 | Nephrology Progress Note ---
Date of Service April 10, 2024 Assessment & Plan (1) Acute renal failure: (2) Metabolic acidosis: (3) Hypertension: (4) Type 2 diabetes mellitus with obesity: (5) Hyperlipemia: (6) Proteinuria: Plan 58-year-old female with baseline normal kidney function, well-controlled hypertension and diabetes, admitted to the hospital with 2 weeks history of episodic nausea and vomiting and outpatient labs showing GENNARO. On admission creatinine was 6.8 with prior baseline creatinine 0.8-0.9. Noted to have metabolic acidosis with potassium normal. Urinalysis with 2+ proteinuria but no hematuria, pyuria or bacteriuria and positive for hyaline cast. CT abdomen pelvis without contrast was otherwise unremarkable. GENNARO could be prerenal with volume depletion with 2 weeks history of nausea vomiting, poor p.o. intake, metformin, ARB on board. Was on Ozempic the dose was recently increased over 2 months ago which may have contributed to the nausea vomiting. Proteinuria could be due to underlying diabetes, tubular proteinuria, glomerular disease or others. Kidney function improving but very slowly, creatinine down to 6 point metabolic acidosis resolved. Spot urine showed more than 1 g of proteinuria.6.4, hemoglobin staying low. Blood pressure well-controlled, volume status acceptable, clinically doing well. --Discontinue IV fluid after current bag is completed, continue to monitor volume status, measure accurate intake and output. Encouraged to increase p.o. intake. --24-hour urine collection for better assessment of proteinuria. --Dose medications for eGFR less than 10, continue holding metformin, olmesartan and Ozempic. Admission and Anticipated Discharge Date Admission Date: April 09, 2024 Fabiana Jay was seen and evaluated this morning. She reports feeling well, denies any symptoms, no nausea or vomiting for last 2 days. Appetite decent. Has been voiding normally. Blood pressure well-controlled. Creatinine slowly improving down to 6.4, metabolic acidosis resolved, on bicarb drip. Review of Systems Review of Systems: Detailed review of system was done and pertinent positives and negatives are mentioned above. Physical Exam Constitutional: WD/WN, vitals as above no acute distress Eyes: + anicteric sclerae Respiratory: Auscultation: lungs clear to auscultation bilaterally Cardiovascular: RRR, no murmur, no edema Skin: no rashes, warm and dry Neurologic: no focal motor deficits Psychiatric: Orientation: alert and oriented x 3 Affect: euthymic affect Results & Data Vital Signs (Past 12 Hours) Vital Signs Temp Pulse Pulse Resp BP Pulse Ox O2 Del Method 04/10/24 07:54 36.4 C L 80 18 129/78 98 Room Air 04/10/24 03:13 36.6 C 66 16 113/67 95 Room Air 04/10/24 00:07 36.3 C L 71 16 114/69 96 Room Air 04/09/24 22:52 76 PG Care Time/CCT Total # of Minutes Spent Total Time Spent with Patient: Total time spent is greater than 50% in coordination of care (as documented) at patient's floor/unit and/or counseling patient: Coding Level of Care Code 38654 SUB INP/OBS CARE 2/35MIN Diagnoses Acute renal failure N17.9 Metabolic acidosis E87.20 Hypertension I10 Type 2 diabetes mellitus with obesity E11.69; E66.9 Hyperlipemia E78.5 Proteinuria R80.9
--- NOTE | 2024-04-10 15:30 | Pharmacy Report ---
Pharmacy Glycemic Short Note 2 - Date of Service April 10, 2024 - Glycemic Short BSG Results (Last 24 hours): 04/09/24 04/09/24 04/09/24 14:52 17:18 20:18 Glucose 163 H POC Glucose 204 H 240 H 04/09/24 04/09/24 04/10/24 23:20 23:41 02:02 Glucose POC Glucose 53 L* 93 54 L* 04/10/24 04/10/24 04/10/24 02:05 02:34 03:41 Glucose 173 H POC Glucose 58 L* 184 H 04/10/24 04/10/24 07:44 11:59 Glucose POC Glucose 129 H 153 H OUTPATIENT ANTIDIABETIC REGIMEN: * metformin 1000mg BIDM * Ozempic 1mg QWK (per recent [place] [facility] notes, hold for 2 weeks and then retitrate up slowly) * Lantus 15 units SQ QAM * NovoLog 20 units SQ QDB/QDL and 40 units QDD * HbA1c 7.2% (12/27/23) ASSESSMENT: * Misty is a 58 YOF admitted with abnormal labs found to be in GENNARO and a history of type 2 diabetes mellitus. Pharmacy has been consulted to assist with glycemic management while inpatient. * Basal insulin ordered at 75% home dosage and Novolog started at parameters approximately similar to home dosage. Hypoglycemic around midnight last night, likely due to overcorrection vs unclear oral intake. Correction factor loosened, BSGs well controlled so far today. PLAN FOR INPATIENT GLYCEMIC CONTROL: * Hold outpatient oral diabetes medications * Basal insulin * Lantus 12 units SQ QAM * Bolus insulin * NovoLog per scale ACHS or Q6hrs while NPO * Goal Range: Low 110 mg/dL - High 140 mg/dL * Correction Factor: 20 mg/dL/unit * Nutritional / Prandial insulin per carb ratio of 1 unit per 5 grams CHO consumed
--- NOTE | 2024-04-10 19:21 | Hospitalist Progress Note ---
Date of Service April 10, 2024 Assessment & Plan (1) Acute renal failure: Plan: Cr 0.77 in Dec 2023 Cr 7.25 as outpatient Cr 6.[address] a/p without obstruction U/a - 2+ protein, 1+ blood, 6-10 hyaline casts noted FENa = 0.8% = prerenal Creatinine slowly improving already She is NON-OLIGURIC Potassium level wnl No evidence of volume overload/pulm edema Etiology of ARF/GENNARO? Checked COVID PCR to r/o post-COVID GN / nephropathy - COVID negative C3, C4, MICHAEL, etc disptached Metformin, olmesartan, Ozempic all on hold Appreciate Dr Ward's consultation & recommendations BMP in am (2) Metabolic acidosis: Plan: 2nd to #1 improved s/p bicarbonate infusion (3) Tachycardia: Plan: resolved 2nd to volume depletion? (4) Type 2 diabetes mellitus with obesity: Plan: Controlled on glargine 16U QAM, Novolog, metformin, semaglutide at home - Most recent A1C 7.2 12/2023 - SSI with target BSG range 110-140mg/dL, CF 15, carb ratio 5 - Glargine insulin reduced to 12 units daily as diet control during hospital sta y - hold metformin and semaglutide - T2DM diet - pharmacy glycemic consult appreciated (5) Hypothyroidism: Plan: recent TSH WNL Continue levothyroxine (6) Hypertension: Plan: continue diltiazem and hold olmesartan (7) Exposure to COVID-19 virus: Plan: COVID PCR performed today and returned negative (8) Anemia: Plan: Hb 11.9 in Dec 2023 Presented with Hb 10 yesterday Now 8.4 today no evidence of any active bleeding Fe studies wnl Check B12/folate Anemia associated with #1?? 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, continue anastrozole HLD - continue atorvastatin B12 deficiency - continue home supplement; check B12/folate levels in am VTE ppx: patient ambulating well, low risk Admission and Anticipated Discharge Date Admission Date: April 09, 2024 Subjective patient without complaints ambulating to bathroom w/o issue her nausea and vomiting she had had at home over the previous 2 weeks has stopped tolerating diet here tele wnl patient reports had COVID in early March she tested at least 3x's at home -- all negative he isolated away from her she has never had COVID, and is UTD with COVID vaccines denies any new complaints this am Review of Systems Review of Systems: gen - no fevers cv - no cp pulm - no dyspnea or ROMAN GI - no pain or N/V Physical Exam Physical Exam: gen - pleasant; looks tired but NAD otherwise mouth - MMM neck - no JVD heart - 1/6 SAI LSB; RRR, s1 s2 lungs - CTA b/l; scant dry rales bases abd - soft NT ND BS+ ext - no edema, pulses 2+ b/l psych - a/o x 3 Results & Data Results & Data Vital Signs (Past 12 Hours) Vital Signs Temp Pulse Pulse Resp BP Pulse Ox O2 Del Method 04/10/24 16:00 87 04/10/24 15:17 36.6 C 72 18 122/72 96 Room Air 04/10/24 11:36 36.4 C L 74 18 134/79 96 Room Air 04/10/24 07:54 36.4 C L 80 18 129/78 98 Room Air 04/10/24 07:30 64 Laboratory Results Laboratory Results - last 48 hr 04/09/24 04/09/24 04/09/24 11:15 11:27 14:50 WBC 10.91 H 10.20 RBC 3.46 L 3.38 L Hgb 9.9 L 9.6 L Hct 30.5 L 29.7 L MCV 88.2 87.9 MCH 28.6 28.4 MCHC 32.5 32.3 RDW Std Deviation 46.8 H 46.8 H RDW Coeff of Car 14.6 H 14.6 H Plt Count 266 242 MPV 11.8 11.2 Immature Gran % (Auto) 0.4 Neut % (Auto) 74.9 Lymph % (Auto) 14.8 [place] % (Auto) 7.2 Eos % (Auto) 1.9 Baso % (Auto) 0.8 Neut # (Auto) 8.17 H Lymph # (Auto) 1.61 [place] # (Auto) 0.79 H Eos # (Auto) 0.21 Baso # (Auto) 0.09 Immature Gran # (Auto) 0.04 VBG pH 7.34 L VBG pCO2 37 L VBG pO2 25 VBG HCO3 20 VBG O2 Saturation < 60.0 VBG Base Excess -5.2 Sodium 137 Potassium 4.5 Chloride 102 Carbon Dioxide 17 L Anion Gap 18 H BUN 88 H Creatinine 6.89 H* Est Cr Clr Drug Dosing 10.2 eGFR 6.36 BUN/Creatinine Ratio 12.8 Glucose 148 H POC Glucose Lactate 1.0 Calcium 9.4 Phosphorus 5.7 H Magnesium 2.1 Iron TIBC Transferrin Transferrin % Sat Ferritin Total Bilirubin 0.5 AST 15 ALT 14 Alkaline Phosphatase 85 Total Creatine Kinase 61 Total Protein 7.5 Albumin 4.4 Globulin 3.1 Albumin/Globulin Ratio 1.4 Urine Color Yellow Urine Appearance Clear Urine pH 5.0 Ur Specific Byars 1.011 Urine Protein 2+ H Urine Glucose (UA) Negative Urine Ketones Trace H Urine Blood 1+ H Urine Nitrite Negative Urine Bilirubin Negative Urine Urobilinogen Negative Ur Leukocyte Esterase 1+ H Urine WBC (Auto) 11-20 H Urine RBC (Auto) 0-2 U Hyaline Cast (Auto) 6-10 H U Epithel Cells (Auto) 0-2 Urine Bacteria (Auto) None Seen Hyaline Casts Present A Urine Osmolality 330 L Ur Random Creatinine U Random Total Protein Ur Random Sodium 50 Protein/Creatinin Ratio SARS-CoV-2 (PCR) 04/09/24 04/09/24 04/09/24 14:52 17:18 20:18 WBC RBC Hgb Hct MCV MCH MCHC RDW Std Deviation RDW Coeff of Car Plt Count MPV Immature Gran % (Auto) Neut % (Auto) Lymph % (Auto) [place] % (Auto) Eos % (Auto) Baso % (Auto) Neut # (Auto) Lymph # (Auto) [place] # (Auto) Eos # (Auto) Baso # (Auto) Immature Gran # (Auto) VBG pH VBG pCO2 VBG pO2 VBG HCO3 VBG O2 Saturation VBG Base Excess Sodium 137 Potassium 4.8 Chloride 103 Carbon Dioxide 18 L Anion Gap 16 H BUN 88 H Creatinine 6.77 H* Est Cr Clr Drug Dosing 10.3 eGFR 6.50 BUN/Creatinine Ratio 13.0 Glucose 163 H POC Glucose 204 H 240 H Lactate Calcium 9.4 Phosphorus Magnesium Iron TIBC Transferrin Transferrin % Sat Ferritin Total Bilirubin AST ALT Alkaline Phosphatase Total Creatine Kinase Total Protein Albumin Globulin Albumin/Globulin Ratio Urine Color Urine Appearance Urine pH Ur Specific Byars Urine Protein Urine Glucose (UA) Urine Ketones Urine Blood Urine Nitrite Urine Bilirubin Urine Urobilinogen Ur Leukocyte Esterase Urine WBC (Auto) Urine RBC (Auto) U Hyaline Cast (Auto) U Epithel Cells (Auto) Urine Bacteria (Auto) Hyaline Casts Urine Osmolality Ur Random Creatinine U Random Total Protein Ur Random Sodium Protein/Creatinin Ratio SARS-CoV-2 (PCR) 04/09/24 04/09/24 04/10/24 23:20 23:41 02:02 WBC RBC Hgb Hct MCV MCH MCHC RDW Std Deviation RDW Coeff of Car Plt Count MPV Immature Gran % (Auto) Neut % (Auto) Lymph % (Auto) [place] % (Auto) Eos % (Auto) Baso % (Auto) Neut # (Auto) Lymph # (Auto) [place] # (Auto) Eos # (Auto) Baso # (Auto) Immature Gran # (Auto) VBG pH VBG pCO2 VBG pO2 VBG HCO3 VBG O2 Saturation VBG Base Excess Sodium Potassium Chloride Carbon Dioxide Anion Gap BUN Creatinine Est Cr Clr Drug Dosing eGFR BUN/Creatinine Ratio Glucose POC Glucose 53 L* 93 54 L* Lactate Calcium Phosphorus Magnesium Iron TIBC Transferrin Transferrin % Sat Ferritin Total Bilirubin AST ALT Alkaline Phosphatase Total Creatine Kinase Total Protein Albumin Globulin Albumin/Globulin Ratio Urine Color Urine Appearance Urine pH Ur Specific Byars Urine Protein Urine Glucose (UA) Urine Ketones Urine Blood Urine Nitrite Urine Bilirubin Urine Urobilinogen Ur Leukocyte Esterase Urine WBC (Auto) Urine RBC (Auto) U Hyaline Cast (Auto) U Epithel Cells (Auto) Urine Bacteria (Auto) Hyaline Casts Urine Osmolality Ur Random Creatinine U Random Total Protein Ur Random Sodium Protein/Creatinin Ratio SARS-CoV-2 (PCR) 04/10/24 04/10/24 04/10/24 02:05 02:34 03:10 WBC RBC Hgb Hct MCV MCH MCHC RDW Std Deviation RDW Coeff of Car Plt Count MPV Immature Gran % (Auto) Neut % (Auto) Lymph % (Auto) [place] % (Auto) Eos % (Auto) Baso % (Auto) Neut # (Auto) Lymph # (Auto) [place] # (Auto) Eos # (Auto) Baso # (Auto) Immature Gran # (Auto) VBG pH VBG pCO2 VBG pO2 VBG HCO3 VBG O2 Saturation VBG Base Excess Sodium Potassium Chloride Carbon Dioxide Anion Gap BUN Creatinine Est Cr Clr Drug Dosing eGFR BUN/Creatinine Ratio Glucose POC Glucose 58 L* 184 H Lactate Calcium Phosphorus Magnesium Iron TIBC Transferrin Transferrin % Sat Ferritin Total Bilirubin AST ALT Alkaline Phosphatase Total Creatine Kinase Total Protein Albumin Globulin Albumin/Globulin Ratio Urine Color Yellow Urine Appearance Clear Urine pH 5.5 Ur Specific [place] 1.008 Urine Protein 1+ H Urine Glucose (UA) Negative Urine Ketones Negative Urine Blood 1+ H Urine Nitrite Negative Urine Bilirubin Negative Urine Urobilinogen Negative Ur Leukocyte Esterase 1+ H Urine WBC (Auto) 6-10 H Urine RBC (Auto) 0-2 U Hyaline Cast (Auto) 0-2 U Epithel Cells (Auto) 0-2 Urine Bacteria (Auto) None Seen Hyaline Casts Urine Osmolality Ur Random Creatinine 56.4 U Random Total Protein 60.9 H Ur Random Sodium Protein/Creatinin Ratio 1.1 H SARS-CoV-2 (PCR) 04/10/24 04/10/24 04/10/24 03:41 07:44 11:59 WBC 9.48 RBC 2.94 L Hgb 8.4 L Hct 25.6 L MCV 87.1 MCH 28.6 MCHC 32.8 RDW Std Deviation 45.1 RDW Coeff of Car 14.3 Plt Count 210 MPV 11.6 Immature Gran % (Auto) Neut % (Auto) Lymph % (Auto) [place] % (Auto) Eos % (Auto) Baso % (Auto) Neut # (Auto) Lymph # (Auto) [place] # (Auto) Eos # (Auto) Baso # (Auto) Immature Gran # (Auto) VBG pH VBG pCO2 VBG pO2 VBG HCO3 VBG O2 Saturation VBG Base Excess Sodium 138 Potassium 3.8 D Chloride 103 Carbon Dioxide 24 Anion Gap 11 BUN 79 H Creatinine 6.38 H* D Est Cr Clr Drug Dosing 11.0 eGFR 6.98 BUN/Creatinine Ratio 12.4 Glucose 173 H POC Glucose 129 H 153 H Lactate Calcium 8.5 L Phosphorus 4.6 D Magnesium Iron 53 TIBC 237 L Transferrin 169 L Transferrin % Sat 22 Ferritin 243.2 Total Bilirubin AST ALT Alkaline Phosphatase Total Creatine Kinase Total Protein Albumin 3.3 L Globulin Albumin/Globulin Ratio Urine Color Urine Appearance Urine pH Ur Specific [place] Urine Protein Urine Glucose (UA) Urine Ketones Urine Blood Urine Nitrite Urine Bilirubin Urine Urobilinogen Ur Leukocyte Esterase Urine WBC (Auto) Urine RBC (Auto) U Hyaline Cast (Auto) U Epithel Cells (Auto) Urine Bacteria (Auto) Hyaline Casts Urine Osmolality Ur Random Creatinine U Random Total Protein Ur Random Sodium Protein/Creatinin Ratio SARS-CoV-2 (PCR) 04/10/24 04/10/24 04/10/24 16:52 17:15 20:14 WBC RBC Hgb Hct MCV MCH MCHC RDW Std Deviation RDW Coeff of Car Plt Count MPV Immature Gran % (Auto) Neut % (Auto) Lymph % (Auto) [place] % (Auto) Eos % (Auto) Baso % (Auto) Neut # (Auto) Lymph # (Auto) [place] # (Auto) Eos # (Auto) Baso # (Auto) Immature Gran # (Auto) VBG pH VBG pCO2 VBG pO2 VBG HCO3 VBG O2 Saturation VBG Base Excess Sodium Potassium Chloride Carbon Dioxide Anion Gap BUN Creatinine Est Cr Clr Drug Dosing eGFR BUN/Creatinine Ratio Glucose POC Glucose 133 H 129 H Lactate Calcium Phosphorus Magnesium Iron TIBC Transferrin Transferrin % Sat Ferritin Total Bilirubin AST ALT Alkaline Phosphatase Total Creatine Kinase Total Protein Albumin Globulin Albumin/Globulin Ratio Urine Color Urine Appearance Urine pH Ur Specific [place]ars Urine Protein Urine Glucose (UA) Urine Ketones Urine Blood Urine Nitrite Urine Bilirubin Urine Urobilinogen Ur Leukocyte Esterase Urine WBC (Auto) Urine RBC (Auto) U Hyaline Cast (Auto) U Epithel Cells (Auto) Urine Bacteria (Auto) Hyaline Casts Urine Osmolality Ur Random Creatinine U Random Total Protein Ur Random Sodium Protein/Creatinin Ratio SARS-CoV-2 (PCR) NEGATIVE PG Care Time/CCT Total # of Minutes Spent Total Time Spent with Patient: Total time spent is greater than 50% in coordination of care (as documented) at patient's floor/unit and/or counseling patient: Coding Level of Care Code 23347 SUB INP/OBS CARE 2/35MIN Diagnoses Acute renal failure N17.9 Metabolic acidosis E87.20 Tachycardia R00.0 Type 2 diabetes mellitus with obesity E11.69; E66.9 Hypothyroidism E03.9 Hypertension I10 Exposure to COVID-19 virus Z20.822 Anemia D64.9
[2024-04-10 22:47] VITALS: RESP 18
[2024-04-11 07:44] VITALS: TEMP 98.2; O2SAT 93
[2024-04-11 08:21] LABS: Hematocrit (blood only) 27.7 % (37.0-47.0); Mean Corpuscular Hemoglobin 28.3 pg (25.0-34.0); Mean Corpuscular Hgb Conc 32.5 g/dL (32.0-36.0); Mean Corpuscular Volume 87.1 fL (80.0-100.0); Mean Platelet Volume 11.5 fL (9.4-12.4); Platelet Count 224 K/uL (130-400); RDW Coefficient of Variation 14.1 % (11.5-14.5); RDW Standard Deviation 45.4 fL (36.4-46.3); Red Blood Count 3.18 M/uL (4.20-5.40); White Blood Count 8.94 K/ul (4.8-10.8)
[2024-04-11 08:35] LABS: Albumin Level 3.4 gm/dl (3.4-5.0); BUN Creatinine Ratio 11.6 (10-20); Creatinine Clr Calc Pharmacy 12.3 ml/min; Phosphorus 5.2 mg/dl (2.5-4.9); Potassium 4.1 mmol/L (3.5-5.1)
[2024-04-11 08:57] LABS: Vitamin B12 > 1500 pg/ml (180-914)
[2024-04-11 10:33] LABS: Urine Total Protein 29.4 mg/dl
--- NOTE | 2024-04-11 11:03 | Nephrology Progress Note ---
Date of Service April 11, 2024 Assessment & Plan (1) Acute renal failure: (2) Metabolic acidosis: (3) Hypertension: (4) Type 2 diabetes mellitus with obesity: (5) Hyperlipemia: (6) Proteinuria: Plan 58-year-old female with baseline normal kidney function, well-controlled hypertension and diabetes, admitted to the hospital with 2 weeks history of episodic nausea and vomiting and outpatient labs showing GENNARO. On admission creatinine was 6.8 with prior baseline creatinine 0.8-0.9. Noted to have metabolic acidosis with potassium normal. Urinalysis with 2+ proteinuria but no hematuria, pyuria or bacteriuria and positive for hyaline cast. CT abdomen pelvis without contrast was otherwise unremarkable. GENNARO could be prerenal with volume depletion with 2 weeks history of nausea vomiting, poor p.o. intake, metformin, ARB on board. Was on Ozempic the dose was recently increased over 2 months ago which may have contributed to the nausea vomiting. Proteinuria could be due to underlying diabetes, tubular proteinuria, glomerular disease or others. Kidney function consistently improving although not as fast, creatinine down to 5.7, metabolic acidosis resolved, potassium normal. 24-hour urine protein collection done this morning, result pending. Hemoglobin slightly improved. Blood pressure well-controlled, volume status acceptable, clinically doing well. -- Advised to continue to keep well-hydrated, avoid all nephrotoxic medications, NSAIDs, continue to hold metformin, Ozempic and olmesartan for now.. -- okay to discharge with close outpatient lab monitoring, she will have lab done Saturday. --Will review 24-hour urine protein, serologic, paraproteinemia workup as an outpatient. Will schedule outpatient follow-up with CKD clinic in next 2 weeks. Admission and Anticipated Discharge Date Admission Date: April 09, 2024 Fabiana Jay was seen and evaluated this morning. She reports feeling well, denies any symptom, appetite decent. Has been trying to keep hydrated although overall net negative with increased urine output. Kidney function continues to improve, electrolyte acceptable. Blood pressure well-controlled. Review of Systems Review of Systems: Detailed review of system was done and pertinent positives and negatives are mentioned above. Physical Exam Constitutional: WD/WN, vitals as above no acute distress Eyes: + anicteric sclerae Respiratory: Auscultation: lungs clear to auscultation bilaterally Cardiovascular: RRR, no murmur, no edema Skin: no rashes, warm and dry Neurologic: no focal motor deficits Psychiatric: Orientation: alert and oriented x 3 Affect: euthymic affect Results & Data Vital Signs (Past 12 Hours) Vital Signs Temp Pulse Pulse Resp BP Pulse Ox O2 Del Method 04/11/24 07:43 36.8 C 75 18 118/73 93 Room Air 04/11/24 07:30 68 04/11/24 03:36 36.7 C 73 18 126/73 91 Room Air PG Care Time/CCT Total # of Minutes Spent Total Time Spent with Patient: Total time spent is greater than 50% in coordination of care (as documented) at patient's floor/unit and/or counseling patient: Coding Level of Care Code 44031 SUB INP/OBS CARE 2/35MIN Diagnoses Acute renal failure N17.9 Metabolic acidosis E87.20 Hypertension I10 Type 2 diabetes mellitus with obesity E11.69; E66.9 Hyperlipemia E78.5 Proteinuria R80.9
[2024-04-11 11:08] LABS: Total Protein 24 Hour Urine 1558.2 mg/24 Hr (0-149.1)
--- NOTE | 2024-04-11 11:18 | Discharge Summary ---
Discharge Summary Date of Service date of admission - April 09, 2024 date of discharge - April 11, 2024 Principal Dx & Hospital Course #1 = Principal Diagnosis (1) Acute renal failure: Cr 0.77 in Dec 2023 Patient admitted after outpatient labs showed a Cr 7.25 on 04/08/24 Cr 6.89 at ER presentation on 04/09/24 Cr 5.69 on 04/11/24 CT abd/pelvis without obstruction U/a - 2+ protein, 1+ blood, 6-10 hyaline casts noted FeNa = 0.8% = prerenal etiology suggested Admitted for IV fluids, nephrology consultation, GENNARO work-up, and supportive care Creatinine slowly improved while here She was NON-OLIGURIC, making copious urine during the visit Potassium level was wnl No evidence of volume overload/pulm edema at any time Etiology of ARF/GENNARO? Checked COVID PCR to r/o post-COVID GN / nephropathy - COVID negative (patient reports her had been sick with COVID about 2-3 weeks prior) C3, C4, MICHAEL, SPEP, UPEP all sent/pending 24-hour urine collection for protein / creatinine completed before discharge home Metformin, olmesartan, Ozempic all on hold Seen by Dr Quiana Ward, [facility], during the stay She advised repeat BMP on 04/13 then again on 04/16 Results will dictate timing of nephrology follow-up in the clinic (2) Nausea & vomiting: Perhaps was 2nd to the acute renal failure itself Perhaps she had had a nonspecific viral syndrome that caused the nausea/vomiting Perhaps the nausea/vomiting was medication side effects CT abd/pelvis without pathology Regardless of etiology her nausea/vomiting improved while here Sent home with zofran prn (3) Metabolic acidosis: 2nd to #1 improved s/p bicarbonate infusion (4) Tachycardia: resolved likely was 2nd to volume depletion (5) Type 2 diabetes mellitus with obesity: Controlled on glargine 16U QAM, Novolog, metformin, semaglutide Most recent A1C 7.2% 12/2023 At discharge she was advised to hold her metformin, semaglutide, and olmesartan for now in light of ARF/GENNARO (6) Hypothyroidism: recent TSH WNL Continue levothyroxine (7) Hypertension: continue diltiazem but hold olmesartan (8) Exposure to COVID-19 virus: patient's had had COVID-19 infection in early Mar 2024 COVID PCR performed and returned negative (9) Anemia: Hb 11.9 in Dec 2023 Presented with Hb 10 Discharge Hb 9 no evidence of any active GI bleeding preadmission or during the visit Fe studies wnl B12/folate levels wnl Anemia 2nd to the etiology of #1 above? 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 She has no known kidney disease. Presents today after abnormal blood work yesterday showing significantly elevated creatinine. she stated that she has had nausea and vomiting for the past 2 weeks, she will have 1 episode of vomiting and then go 2 to 3 days without. She has vomited approximately 6 times in the past few weeks. She just vomits food she eats, no hematemesis or bile. She thought this was secondary to Ozempic and discontinued it. Her PCP told her to discontinue her metformin yesterday 04/08. She did get her morning dose yesterday. She has chronically followed with her renal function, has always been stable. She stated she has had a decreased p.o. intake for the past few weeks just because of the nausea, sometimes she is dry heaves. She feels thirsty today. She drinks plenty of fluids, feels her yeti 3 times daily, no recent decline. She has had no other medication changes recently. She takes her blood pressure frequently at home, has been stable, no hyper or hypotension; has been trending between 120-130 systolic. She denies any urinary changes, denies decrease in urine output, dysuria, hematuria. Patient denies fever, chills, headache, dizziness, lightheadedness, vision changes, dyspnea, chest pain, abdominal pain, current nausea, edema, numbness, tingling. She does not use nicotine products and occasionally drinks alcohol. She still takes anastrozole for history of breast cancer. No previous VTE. She wishes to be full code at this time. She did not take her home medications this morning. Discharge Exam gen - pleasant; looks tired but NAD otherwise mouth - MMM neck - no JVD heart - 1/6 SAI LSB; RRR, s1 s2 lungs - CTA b/l; scant dry rales bases abd - soft NT ND BS+ ext - no edema, pulses 2+ b/l psych - a/o x 3 Discharge Plan Discharge Items Patient Disposition: Home - Self-Care Reason For Visit: ACUTE RENAL FAILURE Discharge Diagnosis: 1. Acute renal failure / acute kidney injury - exact cause uncertain, but creatinine improving (peak creatinine 7.25, discharge creatinine 5.6) 2. Anemia - discharge hemoglobin 9; iron, B12, and folate levels all normal Activity: As commented below Activity Comment: take it easy for 3-4 days, then gradually increase activities as tolerated Exercise/Sports: Wait until after follow-up appointment Non-emergency contact: Primary Care Provider and [place] Call non-emergency contact if: you have any medication questions and your symptoms worsen Follow-up/Referrals: Quiana Ward MD [Physician] - (within 1 week ) Sonya Perez MD [Primary Care Provider] - (1 week ) Diet: Carb Consistent or DM2 Addtl Attending Provider Instructions: Ms Lombardi, Arpit were hospitalized due to acute renal failure / acute kidney injury. This is when the kidneys become ill and are not working as efficiently as usual. There are numerous causes of acute kidney injury - medicines, infections (viruses, etc), autoimmune diseases, toxins, low blood pressure, etc. At this time it is not clear what caused the kidney injury. COVID testing was negative. Your CT scan of the abdomen and pelvis did not show any blockages of your ureters or bladder. We did not see any tumors or other significant abnormalities of your kidneys either. Numerous lab tests have been dispatched to determine the cause of your kidney injury. A 24-hour urine collection was also obtained. Most of these results will return in about a week. Fortunately your kidney injury is improving nicely (your creatinine is decreasing) and you are making copious amounts of urine. These are all good signs that your kidneys are recovering. At this time please STOP the following - metformin, Ozempic, and olmesartan. AVOID the following twht-mvo-[id number] anti-inflammatory medicines - aspirin, aleve, naprosyn, motrin, ibuprofen. TYLENOL IS OK to take for aches/pains/fever/headache/etc. Please have blood work checked on Saturday & next week. You can have these labs checked at any [facility] lab. You don't have to fast for the bloodwork. If you were to have any nausea or vomiting at home you can take ondansetron 4mg every 6 hours as needed. Prescription sent to [facility]. Follow-up - see Dr Ward from nephrology in 1 week Return to [facility] if - * you have fever over 100 degrees * you have worsening swelling of your legs/arms and/or abdomen * you notice that your urine output is decreasing * you have persistent nausea and/or vomiting * you have concerns about dehydration * any other concerns It was our pleasure to care for you! Happy holidays :) -Dr Worrell Pending Studies at Discharge: Yes Studies:: Numerous labs looking for a cause of your acute renal failure Stand-Alone Forms: [facility], Smoking Cessation Medications and DC Order Prescriptions: New ondansetron 4 mg tablet,disintegrating 4 mg PO Q6H PRN (Reason: nausea and vomiting) Qty: 14 0RF Continued insulin glargine [Basaglar KwikPen U-100 Insulin] 100 unit/mL (3 mL) insulin pen 15 unit SQ QAM vitamin E mixed 400 unit capsule 400 unit PO DAILY anastrozole 1 mg tablet 1 mg PO DAILY (DME) Dexcom G6 Sensor Device See Dose Instructions .ROUTE .MEDSUPPLY Qty: 9 3RF Rx Instructions: Change device every 10 days (DME) Dexcom G6 Transmitter Device See Dose Instructions .ROUTE .MEDSUPPLY Qty: 1 3RF Rx Instructions: Change transmitter every 3 months (DME) Dexcom G7 Math Specialist Misc See Rx Instructions .Route Qty: 1 3RF Rx Instructions: Change every 3 months as directed. levothyroxine 75 mcg tablet 75 mcg PO QAM Qty: 90 3RF (DME) Dexcom G7 Sensor Device See Rx Instructions .Route Qty: 9 3RF Rx Instructions: As directed change sensor every 10 days rosuvastatin 40 mg tablet 40 mg PO DAILY Qty: 90 3RF diltiazem HCl 120 mg capsule,extended release 24 hr 120 mg PO BID Qty: 180 3RF (DME) Dexcom G6 Math Specialist misc See Dose Instructions .ROUTE .MEDSUPPLY Qty: 1 Rx Instructions: as directed cholecalciferol (vitamin D3) 50 mcg (2,000 unit) capsule 1,000 unit PO QAM cyanocobalamin (vitamin B-12) 1,000 mcg capsule 2,500 mcg PO QAM (DME) OneTouch Verio test strips Strip See Rx Instructions .ROUTE .MEDSUPPLY Qty: 100 2RF Rx Instructions: use to test QID when dexcom is not working (DME) blood-glucose meter [OneTouch Verio Flex meter] Misc See Rx Instructions .ROUTE .MEDSUPPLY Qty: 1 0RF Rx Instructions: use to test blood sugar QID when dexcom is not working [facility] 1 tab PO QAM insulin aspart U-100 [Novolog FlexPen U-100 Insulin] 100 unit/mL (3 mL) insulin pen 80 unit SQ UD Patient Comments: sliding scale Rx Instructions: Inject 20 units with breakfast/lunch and 40 units with dinner. TDD 80 units (DME) pen needle, diabetic 31 gauge x 3/16" Needle MISCELLANEOUS Rx Instructions: USE 4 NEEDLES DAILY WITH INSULIN PENS Held olmesartan 40 mg tablet 40 mg PO QAM Qty: 90 3RF Hold Instructions: hold until further notice metformin 1,000 mg tablet 1,000 mg PO BID Qty: 180 3RF Hold Instructions: N/V semaglutide 1 mg/dose (4 mg/3 mL) pen injector 1 mg subcut WK Qty: 9 1RF Hold Instructions: N/V Rx Instructions: Inject 1 mg weekly on Tuesdays Discharge Orders: Discharge Order (Routine); Ordered 04/11/24 Ordered By: Jamey Berry/Other Patient Handouts: Acute Kidney Failure Dc Admission Data Admit Date/Time: 04/09/24 14:39 Attending Provider: Jamey Worrell Admit Provider: Ricci Virk Primary Care Provider: Sonya Perez Other Providers: Quiana Ward Other Interventions: Discharge Summary Assessment (RN) Last Done: 04/11/24 12:03 Hospital Stay Data Consultations [facility] Procedures Performed 24-hour urine collection COVID testing (negative) Diagnostic Imagining Performed Chest X-Ray 04/09/24 11:08 XR chest 1V portable CLINICAL HISTORY: illness COMPARISON STUDY: Chest CT April 24, 2008. FINDINGS: Lung volumes are normal. Lungs are clear. There is no pneumothorax or pleural effusion. Mild cardiomegaly. Mediastinal contours are normal. There is no evidence for pulmonary edema. IMPRESSION: No acute cardiopulmonary findings. Cardiomegaly. ACT 112: Negative or not required by law. Electronically signed by: Raudel Alexandra M.D. 04/09/2024 12:50 PM Abdomen/Pelvis CT 04/09/24 12:01 CT OF THE ABDOMEN AND PELVIS WITHOUT CONTRAST CLINICAL HISTORY: Acute kidney injury. COMPARISON STUDY: CT of the abdomen and pelvis May 25, 2008. TECHNIQUE: Axial images of the abdomen and pelvis were obtained without IV contrast. Images were reviewed in the axial, sagittal, and coronal planes. Automated exposure control was utilized for the study. A dose lowering technique was utilized adhering to the principles of ALARA. FINDINGS: Lung bases are unremarkable. No pneumatosis, free air or portal venous gas is present. There are no renal, ureteral or bladder calculi. There is no hydronephrosis. Mild bilateral perinephric infiltration is greater on the left. Size of the kidneys is normal. Renal cortical thickness is normal. Fat attenuation 2.4 cm left adrenal nodule represents a myelolipoma. This is benign. Unenhanced images of the liver, spleen, adrenal glands and pancreas are unremarkable. There is no biliary or pancreatic ductal dilatation. There is no evidence for acute appendicitis. A radiodensity within the appendix is present. There is no lymphadenopathy. There are no fluid collections. IMPRESSION: 1. No urinary calculi or hydronephrosis. 2. Mild bilateral perinephric infiltration, greater than left. This represents a nonspecific finding which could be correlated with urinalysis. 3. No bowel obstruction. No evidence for acute appendicitis. ACT 112: Negative or not required by law. Electronically signed by: Raudel Alexandra M.D. 04/09/2024 1:02 PM Pending Results Patient Have Any Pending Studies at Discharge: Yes Discharge Instructions Given to Patient (Per Discharging Provider) Ms Lombardi, You were hospitalized due to acute renal failure / acute kidney injury. This is when the kidneys become ill and are not working as efficiently as usual. There are numerous causes of acute kidney injury - medicines, infections (viruses, etc), autoimmune diseases, toxins, low blood pressure, etc. At this time it is not clear what caused the kidney injury. COVID testing was negative. Your CT scan of the abdomen and pelvis did not show any blockages of your ureters or bladder. We did not see any tumors or other significant abnormalities of your kidneys either. Numerous lab tests have been dispatched to determine the cause of your kidney injury. A 24-hour urine collection was also obtained. Most of these results will return in about a week. Fortunately your kidney injury is improving nicely (your creatinine is decreasing) and you are making copious amounts of urine. These are all good signs that your kidneys are recovering. At this time please STOP the following - metformin, Ozempic, and olmesartan. AVOID the following viow-pyt-pyqlmvs anti-inflammatory medicines - aspirin, aleve, naprosyn, motrin, ibuprofen. TYLENOL IS OK to take for aches/pains/fever/headache/etc. Please have blood work checked on Saturday & next week. You can have these labs checked at any [facility] lab. You don't have to fast for the bloodwork. If you were to have any nausea or vomiting at home you can take ondansetron 4mg every 6 hours as needed. [facility] Follow-up - see Dr Ward from nephrology in 1 week Return to [facility] if - * you have fever over 100 degrees * you have worsening swelling of your legs/arms and/or abdomen * you notice that your urine output is decreasing * you have persistent nausea and/or vomiting * you have concerns about dehydration * any other concerns It was our pleasure to care for you! Happy holidays :) -Dr Worrell Total Time Total Time Spent Total Time Spent (In Minutes): 45 Coding Level of Care Code 15310 INP/OBS DISCH >30 MIN Diagnoses Acute renal failure N17.9 Nausea & vomiting R11.2 Metabolic acidosis E87.20 Tachycardia R00.0 Type 2 diabetes mellitus with obesity E11.69; E66.9 Hypothyroidism E03.9 Hypertension I10 Exposure to COVID-19 virus Z20.822 Anemia D64.9
[2024-04-11 12:04] VITALS: BP 128/81; PULSE 89
[2024-04-13 15:06] LABS: Anti Nuclear Antibody Screen NEGATIVE (NEGATIVE); Free Kappa 88.8 mg/L (3.3-19.4); Free Kappa/Lambda Ratio 2.16 (0.26-1.65); Free Lambda 41.1 mg/L (5.7-26.3)
[2024-04-14 06:47] LABS: Albumin 3.4 g/dL (3.8-4.8); Alpha 1 Globulin 0.4 g/dL (0.2-0.3); Alpha 2 Globulin 1.3 g/dL (0.5-0.9); Beta-1-Globulin 0.4 g/dL (0.4-0.6); Beta-2-Globulin 0.4 g/dL (0.2-0.5); Complement C3 156 mg/dL (83-193); Gamma Globulin 0.8 g/dL (0.8-1.7); Monoclonal Protein Band 1 DNR g/dL (NONE DETECTED); Monoclonal Protein Band 2 DNR g/dL (NONE DETECTED); Monoclonal Protein Band 3 DNR g/dL (NONE DETECTED); Total Protein 6.8 g/dL (6.1-8.1)
[2024-04-14 07:02] LABS: Creatinine Ur 69 mg/dL (20-275); Protein, Urine Random 80 mg/dL (5-24); Ur Albumin % 21 %; Ur Alpha-1-globulin % 8 %; Ur Alpha-2-globulin % 27 %; Ur Beta Globulin % 12 %; Ur Gamma Globulin % 32 %; Ur Protein/Creat Ratio mg/g 1159 mg/g creat (24-184); Urine Abnormal Protein Band 1 DNR mg/dL (NONE DETECTED); Urine Abnormal Protein Band 2 DNR mg/dL (NONE DETECTED); Urine Protein/Creatinine Ratio 1.159 (0.024-0.184)
== END 2024-04-11 12:37 | disposition home or self-care (01) | DRG 683 ==
LOC: ED 10:58 → 2N 14:39 → SUATTDRO 14:39 → 2N 17:01
DX: Z79.4 Long term (current) use of insulin; R11.2 Nausea with vomiting, unspecified; E87.20 Acidosis, unspecified; Z79.890 Hormone replacement therapy; E03.9 Hypothyroidism, unspecified; E86.1 Hypovolemia; Z79.85 Long-term (current) use of injectable non-insulin antidiabetic drugs; Z68.37 Body mass index [BMI] 37.0-37.9, adult; D64.9 Anemia, unspecified; Z92.3 Personal history of irradiation; Z85.3 Personal history of malignant neoplasm of breast; Z88.8 Allergy status to other drugs, medicaments and biological substances; E78.5 Hyperlipidemia, unspecified; I10 Essential (primary) hypertension; E66.9 Obesity, unspecified; N17.9 Acute kidney failure, unspecified; E11.9 Type 2 diabetes mellitus without complications; Z88.0 Allergy status to penicillin